=== PATIENT | female | born 1995 | race Caucasian/White ===

== ENCOUNTER 2020-02-19 12:24 | Day surgery (SDC) | payer OTHER ==
[~2020-02-19] VITALS: Ht 172.7 cm; Wt 60.7 kg
[~2020-02-19 12:24] MED LIST: BIRTH CONTROL; LORTAB ELIX0.5 MG/ML PO
[2020-02-27 08:31] VITALS: BP 105/79; PULSE 75; TEMP 98
[2020-02-27] MEDS ORDERED: EXCEDRIN1 TAB PO (08:41)
[2020-02-27] MEDS ORDERED: PIRMELLA 1/351 TAB PO (08:41)
[2020-02-27] MEDS ORDERED: TYLENOL 500MG500 MG PO (08:42)
[2020-02-27] MEDS ORDERED: WOMEN'S DAILY F1 TAB PO (08:43)
--- NOTE | 2020-02-27 08:45 | NUR ---
CALL LIGHT IN REACH MOTHER AT BEDSIDE.
[2020-02-27 09:35] VITALS: BP 102/70; PULSE 72
--- NOTE | 2020-02-27 09:40 | NUR ---
Dr. Quezada in the room and talks with the patient. All questions answered.
--- NOTE | 2020-02-27 09:40 | NUR ---
Patient returns to [facility] [address] per cart and transfers from cart to recliner with one person assist. IV fluids infusing. Mother in room. Allowed to rest. Denies abdominal pain or nausea. Temp 97.8 and room air sats 99%. States that she is hungry and given muffin and juice to drink.
[2020-02-27] MEDS ORDERED: IMODIUM A-D2 MG PO (09:47)
[2020-02-27 09:50] VITALS: BP 109/76; PULSE 90
--- NOTE | 2020-02-27 09:50 | NUR ---
IV discontinued and tolerated snack well.
[2020-02-27 10:05] VITALS: BP 105/69; PULSE 71
--- NOTE | 2020-02-27 10:05 | NUR ---
Patient dresses self. Given dismissal instructions and voices understanding of these. Instructed to take OTC Imodium for diarrhea and that the office will notify you of results of biopsy. Provided office number for questions and concerns.
--- NOTE | 2020-02-27 10:09 | NUR ---
Patient dismissed to home driven by parents and taken to the front door per wheelchair and assisted into vehicle with dismissal instructions in hand.
== END 2020-02-27 10:09 | disposition home or self-care (01) ==
LOC: SDCO
DX: R19.7 Diarrhea, unspecified (principal); F41.9 Anxiety disorder, unspecified
CPT/HCPCS: J2250; J3010; J7030